=== PATIENT | male | born 1955 | race Caucasian/White ===

== ENCOUNTER 2016-06-18 17:56 | Emergency (ER) | payer BC, OTHER ==
[2016-06-18] MEDS ORDERED: ONDANSETRON HCL/PF 2 MG/ML VIAL IV ONE (18:18)
[2016-06-18] MEDS ORDERED: DIAZEPAM 5 MG/ML SYRG IV ONE (18:18)
[2016-06-18] MEDS ORDERED: DIAZEPAM 5 MG/ML SYRG ONE (18:21)
[2016-06-18] MEDS ORDERED: ONDANSETRON HCL/PF 2 MG/ML VIAL ONE (18:21)
--- NOTE | 2016-06-18 18:22 | ERNOTE ---
<Long Martins - Last Filed: 06/18/16 18:59> Medical Problem HPI - General Chief Complaint: General Assessment Time Seen by Provider: 06/18/16 18:12 Source: patient Exam Limitations: no limitations - Immun/Allergies/Home Medications Immunizations: IMMUNIZATION HX Immunizations Up to Date Yes History of Influenza Vaccine Yes Hx Pneumococcal Vaccination No Allergies/Adverse Reactions: Allergies bee venom (honey bee) Allergy (Verified 06/18/16 18:05) Home Medications: HOME MEDICATIONS Diazepam [Valium] 2 mg PO BID PRN #10 tab 06/18/16 [Last Taken Unknown] Meclizine HCl [Antivert] 25 mg PO TID PRN #20 tab 06/18/16 [Last Taken Unknown] - History of Present History Narrative: Patient's was waiting in the car for his and started to get dizzy and nauseated with any sudden head movements of any kind, patient comes in now hyperventilating and he has numbness and tingling on his hands and feet and tip of his nose. Timing: constant Severity: moderate Review of Systems - Review of Systems Constitutional: Present: See HPI EYE: Present: no symptoms reported ENT: Present: no symptoms reported Respiratory: Present: no symptoms reported Cardiology: Present: no symptoms reported Gastrointestinal/Abdominal: Present: no symptoms reported Genitourinary: Present: no symptoms reported Musculoskeletal: Present: no symptoms reported Skin: Present: no symptoms reported Neurological: Present: numbness Endocrine: Present: no symptoms reported Hematologic/Lymphatic: Present: no symptoms reported Psych: Present: no symptoms reported - Patient's Past Medical History Patient History - Medical: No pertinent hx Patient History - Cardiac/Respiratory: No pertinent hx Patient History - Cancer: No Hx of Cancer Patient History - Surgical Procedures: Angioplasty, T & A Patient History - Other: None - Social History Living Situations: home Abuse History: No History of abuse Psych History: No pertinent hx Smoking Status: Never smoker Have you smoked in the past 12 months: No Do you dip or chew tobacco: No Patient requests Smoking Cessation Consult: No Initiate information on Smoking Cessation: No Alcohol Use: occasionally Drug Use: none - Immunizations Immunizations Up to Date: Yes Hx Pneumococcal Vaccination: No History of Influenza Vaccine: Yes Physical Exam - Physical Exam General Appearance: Present: wd/wn, alert, no apparent distress, mild distress Eye Exam: Normal inspection: bilateral, PERRL: bilateral Ears, Nose, Throat: Present: normal ENT inspection, H, normal pharynx Neck: Present: normal inspection, nontender Respiratory: Present: no respiratory distress, normal breath sounds, no accessory muscle use, chest nontender, lungs clear Cardiovascular/Chest: Present: regular rate, rhythm, no murmur, normal peripheral pulses Gastrointestinal/Abdominal: Present: normal bowel sounds, nontender, nondistended, soft, no organomegaly Rectal Exam: Present: deferred Back Exam: Present: normal inspection, normal range of motion Extremity Exam: Present: normal inspection, non-tender, no edema, normal range of motion Neurological Exam: Present: alert, oriented, normal mood/affect, normal cerebellar test, other - on further neurologic examination patient is found to have positive head impulse testing. Patient also has a unilateral horizontal nystagmus. Patient also has a negative skew deviation test. Skin Exam: Present: normal color, warm/dry Lymphatic Exam: Present: no adenopathy ED Progress - Results and Orders Patient's Lab Results:: I have reviewed the patient's lab results. - Vital Signs Patient's Vital Signs:: I have reviewed the patient's vital signs. Vital Signs: Vital Signs 06/18/16 18:03 Temperature 35.8 C L Pulse Rate 59 L Respiratory 26 H Rate Blood Pressure 190/99 O2 Sat by Pulse 100 Oximetry - EKG EKG: other - bradycardia EKG read: Interp. by me - Progress/Reassessment Chief Complaint: General Assessment Progress:: Improved - Transfer of Care Physician Sign Out: Long Martins Receiving Physician: Juan Pablo Mathew Departure - Departure Clinical Impression: Carotid artery disease without cerebral infarction, Elevated blood pressure reading without diagnosis of hypertension Benign paroxysmal positional vertigo Qualifiers: Laterality: left Qualified Code(s): H81.12 - Benign paroxysmal vertigo, left ear Disposition: Home Follow Up Needed Condition: Fair Instructions: Carotid Artery Disease, Atherosclerosis, Benign Essential Blepharospasm, Benign Positional Vertigo Additional Instructions: See your regular doctor as soon as possible for fasting cholesterol levels and other testing related to your carotid arteries. Discuss your blood pressure as well, it may need to be treated also. Do the James maneuver (hand out I gave you) every night before going to bed. Return to ER as needed. Use the valium as needed or you may try the meclizine instead. Referrals: Shad Rodriguez MD [Primary Care Provider] - Prescriptions: Diazepam [Valium] 2 mg PO BID PRN #10 tab PRN Reason: Vertigo Meclizine HCl [Antivert] 25 mg PO TID PRN #20 tab PRN Reason: Vertigo <Juan Pablo Mathew - Last Filed: 06/18/16 22:11> Medical Problem HPI - Immun/Allergies/Home Medications Immunizations: IMMUNIZATION HX Immunizations Up to Date Yes History of Influenza Vaccine Yes Hx Pneumococcal Vaccination No ED Progress - Vital Signs Vital Signs: Vital Signs 06/18/16 06/18/16 18:03 18:58 Temperature 35.8 C L Pulse Rate 59 L 60 Respiratory 26 H 17 Rate Blood Pressure 190/99 162/87 O2 Sat by Pulse 100 93 Oximetry - CT/Ultrasound CT/Ultrasound Narrative: CT head without contrast: Benign calcifications noted. Pansinusitis. No acute hemorrhage or mass effect CT angiogram of head: scattered atherosclerotic changes without hemodynamically significant stenosis, aneurysm, or occlusion CT angiogram of neck: Minimal atherosclerosis right carotid (approx 30%). Moderate atherosclerosis (approx 50%) of left proximal internal carotid - Progress/Reassessment Progress Note-Subjective: 06/18/16 22:15 discussed with the patient and his the findings on the CT head, and CT angio of head and neck ordered by Dr. Martins. Discussed atherosclerosis and the need to reduce his lifestyle and other risk factors to help stop progression of this disease. Discussed hypertension and his probable need for active treatment although this episode should not be considered diagnostic. Gave home james maneuver handout and walked him through the James maneuver with exacerbations of his dizziness with each step as well as nausea, but no immediate improvement in his vertigo
[2016-06-18 18:49] LABS: Hematocrit 46.9 % (42.0-52.0); Hemoglobin 15.9 gm/dL (13.5-18.0); Mean Cell Volume 85.3 fl (78-100); Mean Corpuscular Hemoglobin 28.9 pg (27-31); Mean Corpuscular Hgb Conc 33.9 g/dl (32-36); Mean Platelet Volume 12.2 fl (6.0-9.5); Neutrophil # 11.5 K/mm3 (1.3-6.0); Neutrophil % 84.8 % (42-75.0); Platelet Count 114 K/mm3 (150-450); Red Cell Distribution Width 13.6 % (11.5-14.0); White Blood Count 13.5 K/mm3 (4.0-10.5)
[2016-06-18] MEDS: NORMAL SALINE 1,000 ML in NORMAL SALINE 1,000 ML IV ONE ×2 (18:57→20:55)
[2016-06-18 19:04] LABS: ALT 35 U/L (19-67); AST 50 U/L (0-48); Albumin * 4.3 gm/dl (3.4-5.0); Alkaline Phosphatase * 77 U/L (50-170); Anion Gap 16.8 mmol/L (6.8-13.8); BUN/Creatinine Ratio 20.8 (9.0-21.6); Bilirubin, Total 0.6 mg/dL (0.0-1.1); Blood Urea Nitrogen 20 mg/dL (6-23); Ca. Corrected For Albumin 8.9 mg/dL (8.4-10.2); Calcium * 9.5 mg/dL (7.9-10.9); Carbon Dioxide 25.6 mmol/L (24-32.6); Chloride 104 mmol/L (97-106); Glucose * 156 mg/dL (70-110); Magnesium 2.1 mg/dL (1.2-2.8); Sodium 140 mmol/L (132-142); Total Protein 8.2 gm/dL (6.2-8.2)
[2016-06-18 19:07] LABS: Potassium 6.4 mmol/L (3.4-4.6); Troponin I Less than 0.017 ng/ml (0.00-0.10)
[2016-06-18 19:10] VITALS: BP 162/87
== END 2016-06-18 21:46 | disposition home or self-care (01) ==
LOC: ER 17:56
DX: G45.1 Carotid artery syndrome (hemispheric) (principal); R03.0 Elevated blood-pressure reading, without diagnosis of hypertension; H81.12 Benign paroxysmal vertigo, left ear

== ENCOUNTER 2016-09-13 08:33 | Emergency (ER) | payer BC, OTHER ==
--- NOTE | 2016-09-13 08:43 | ERNOTE ---
Medical Problem HPI - General Time Seen by Provider: 09/13/16 08:40 Source: patient Exam Limitations: no limitations - Immun/Allergies/Home Medications Immunizations: IMMUNIZATION HX Immunizations Up to Date Yes History of Influenza Vaccine Yes Hx Pneumococcal Vaccination No Allergies/Adverse Reactions: Allergies venom-honey bee [bee venom (honey bee)] Allergy (Verified 09/13/16 08:45) Home Medications: HOME MEDICATIONS Aspirin [Aspirin Enteric Coated] 81 mg PO DAILY 09/13/16 [Last Taken Unknown] Atorvastatin Calcium [Lipitor] 10 mg PO DAILY 09/13/16 [Last Taken Unknown] - History of Present History Narrative: pt had chest pains last night and today he complains of left sided abd pain. Chest pain was 6/10 and while eating. Resolved spontaneously and now pt has left lower quadrant abd pain. Denies cough, SOB, palpitations or diaphoresis. Review of Systems - Review of Systems Constitutional: Present: no symptoms reported EYE: Present: no symptoms reported ENT: Present: no symptoms reported Respiratory: Present: no symptoms reported Cardiology: Present: See HPI Gastrointestinal/Abdominal: Present: no symptoms reported Genitourinary: Present: no symptoms reported Musculoskeletal: Present: no symptoms reported - Patient's Past Medical History Patient History - Medical: No pertinent hx Patient History - Cardiac/Respiratory: No pertinent hx Patient History - Cancer: No Hx of Cancer Patient History - Surgical Procedures: Angioplasty, T & A Patient History - Other: None - Social History Living Situations: home Abuse History: No History of abuse Psych History: No pertinent hx Alcohol Use: occasionally Drug Use: none - Immunizations Immunizations Up to Date: Yes Hx Pneumococcal Vaccination: No History of Influenza Vaccine: Yes Physical Exam - Physical Exam General Appearance: Present: wd/wn, alert, no apparent distress Ears, Nose, Throat: Present: normal ENT inspection Neck: Present: normal inspection, nontender, supple, full range of motion Respiratory: Present: no respiratory distress, normal breath sounds, no accessory muscle use, chest nontender, lungs clear Cardiovascular/Chest: Present: regular rate, rhythm, no murmur, normal peripheral pulses, other - pt has NO chest pain whatsoever Extremity Exam: Present: normal inspection, non-tender, normal range of motion ED Progress - Results and Orders Patient's Lab Results:: I have reviewed the patient's lab results. - Vital Signs Patient's Vital Signs:: I have reviewed the patient's vital signs. - X-Ray X-Ray #1 X-Ray: chest Plan - Plan Plan: patient's Troponin is elevated. His EKG is normal sinus without any ST or T changes. Mino Jade at [facility] was consulted and he accepted this patient to their facility. He has been given ASA 324, Heparinized and is stable for transport via ground ambulance Departure - Departure Clinical Impression: NSTEMI (non-ST elevated myocardial infarction) Disposition: [facility] Condition: Good Referrals: Shad Rodriguez MD [Primary Care Provider] -
[2016-09-13 08:57] LABS: Hematocrit 44.4 % (42.0-52.0); Mean Cell Volume 85.9 fl (78-100); Mean Corpuscular Hgb Conc 33.8 g/dl (32-36); Mean Platelet Volume 10.5 fl (6.0-9.5); Neutrophil # 3.7 K/mm3 (1.3-6.0); Neutrophil % 61.3 % (42-75.0); Platelet Count 179 K/mm3 (150-450); Red Blood Count 5.17 M/mm3 (4.7-6.0); Red Cell Distribution Width 13.7 % (11.5-14.0)
[2016-09-13 09:19] LABS: Troponin I 1.744 ng/ml (0.00-0.10)
[2016-09-13] MEDS ORDERED: ASPIRIN 325 MG TABLET.DR PO ONE (09:20)
[2016-09-13] MEDS ORDERED: ASPIRIN 81 MG TAB.CHEW ONE (09:21)
[2016-09-13 09:22] LABS: Albumin * 3.9 gm/dl (3.4-5.0); Anion Gap 11.9 mmol/L (6.8-13.8); BUN/Creatinine Ratio 10.2 (9.0-21.6); Bilirubin, Total 0.7 mg/dL (0.0-1.1); CKMB 2.3 ng/mL (0.0-9.0); Ca. Corrected For Albumin 9.1 mg/dL (8.4-10.2); Calcium * 9.3 mg/dL (7.9-10.9); Potassium 3.9 mmol/L (3.4-4.6); Total Protein 7.3 gm/dL (6.2-8.2)
[2016-09-13] MEDS ORDERED: ASPIRIN 81 MG TAB.CHEW PO ONE (09:24)
[2016-09-13] MEDS ORDERED: HEPARIN SODIUM,PORCINE 5,000 UNITS/ML VIAL ONE (09:27)
[2016-09-13] MEDS ORDERED: HEPARIN SODIUM,PORCINE/D5W 25,000 UNITS/500 ML BAG IV ONE (09:28)
[2016-09-13] MEDS ORDERED: HEPARIN SODIUM,PORCINE 5,000 UNITS/ML VIAL IV ONE (09:31)
[2016-09-13 09:44] VITALS: BP 144/55
[2016-09-13] MEDS ORDERED: HEPARIN SODIUM,PORCINE/D5W 25,000 UNITS/500 ML BAG IV SCH (09:45)
[2016-09-13 09:53] LABS: INR 0.96 INR (0.90-1.10); Partial Thrombolplastin Time 27.9 Seconds (24-32)
== END 2016-09-13 09:54 | disposition short-term general hospital (02) ==
LOC: ER 08:33
DX: I21.4 Non-ST elevation (NSTEMI) myocardial infarction (principal)